=== PATIENT | male | born 1970 | race Caucasian/White ===

== ENCOUNTER 2017-06-07 13:52 | Emergency (ER) | payer MEDICARE, OTHER ==
[~2017-06-07] VITALS: Ht 188 cm; Wt 84.0 kg
[2017-06-07 15:01] VITALS: BP 151/127
[2017-06-07] MEDS ORDERED: traMADol 50MG tablet PO STA (16:10)
[2017-06-07] MEDS ORDERED: acetaminophen 325mg tablet PO STA (16:10)
[2017-06-07] MEDS ORDERED: TRAM50TA2 PO (16:58)
== END 2017-06-07 17:12 | disposition home or self-care (01) ==
LOC: ER 13:52
DX: S39.012A Strain of muscle, fascia and tendon of lower back, initial encounter (principal); G89.29 Other chronic pain; Z98.890 Other specified postprocedural states; Z88.5 Allergy status to narcotic agent; Z79.899 Other long term (current) drug therapy; X50.9XXA Other and unspecified overexertion or strenuous movements or postures, initial encounter; Y93.89 Activity, other specified; Y92.89 Other specified places as the place of occurrence of the external cause; Y99.8 Other external cause status
CPT/HCPCS: 72070; 72100; 99284

== ENCOUNTER 2018-05-17 11:37 | Emergency (ER) | payer MEDICARE ==
[~2018-05-17] VITALS: Ht 188 cm; Wt 85.0 kg
[2018-05-17] MEDS ORDERED: acetaminophen 325mg tablet PO ONE (12:05)
[2018-05-17 13:01] LABS: BASOPHILS % (AUTO) 0.5 % (0-1); EOSINOPHILS % (AUTO) 0.1 % (0-6); HEMATOCRIT 49.9 % (42.0-52.0); HEMOGLOBIN 17.2 g/dl (14.0-17.9); LYMPHOCYTES # (AUTO) 0.7 X10'3 (1.1-4.8); LYMPHOCYTES % (AUTO) 9.7 % (21-51); MEAN CORPUSCULAR HEMOGLOBIN 30.2 PG (27.0-31.0); MEAN CORPUSCULAR HGB CONC 34.3 g/dL (33.0-36.5); MEAN CORPUSCULAR VOLUME 87.9 FL (78-98); MEAN PLATELET VOLUME 7.1 FL (7.4-10.4); MONOCYTES # (AUTO) 0.5 X10'3 (0-0.9); MONOCYTES % (AUTO) 6.6 % (2-12); NEUTROPHILS # (AUTO) 6.2 X10'3 (1.8-7.7); NEUTROPHILS % (AUTO) 83.1 % (42-75); PLATELET COUNT 249 X10'3 (140-440); RED BLOOD COUNT 5.68 X10'6 (4.70-6.10); RED CELL DISTRIBUTION WIDTH 13.7 % (11.5-14.5); WHITE BLOOD COUNT 7.5 X10'3 (4.5-11.0)
[2018-05-17 13:14] LABS: INR 1.1 INR; PARTIAL THROMBOPLASTIN TIME 32 SECONDS (22-32); PROTHROMBIN TIME 10.8 SECONDS (9.0-12.0)
[2018-05-17 13:16] LABS: ALANINE AMINOTRANSFERASE 65 U/L (12-78); ALBUMIN 3.9 G/DL (3.4-5.0); ALBUMIN/GLOBULIN RATIO 0.9 (1.1-1.5); ALKALINE PHOSPHATASE 223 IU/L (46-116); ANION GAP 12 (8-16); ASPARTATE AMINO TRANSFERASE 47 U/L (10-37); BILIRUBIN,TOTAL 0.9 MG/DL (0.1-1.0); BLOOD UREA NITROGEN 16 MG/DL (7-18); CALCIUM 9.1 MG/DL (8.5-10.1); CHLORIDE 99 MMOL/L (99-107); CREATININE 1.33 MG/DL (0.60-1.10); GLUCOSE 109 MG/DL (70-104); SODIUM 135 MMOL/L (135-145); TOTAL CARBON DIOXIDE 24.2 MMOL/L (24-32); TOTAL PROTEIN 8.3 G/DL (6.4-8.2); eGFR 58 ML/MIN
[2018-05-17] MEDS ORDERED: DOXY50TA2 PO (13:34)
[2018-05-17] MEDS ORDERED: DOXY100C43 PO (13:34)
[2018-05-17] MEDS ORDERED: ketorolac trometh. 30mg/ml inj. IV ONE (13:35)
[2018-05-17] MEDS ORDERED: normal saline 1000ML IV soln IVB ONE (13:35)
[2018-05-17] MEDS ORDERED: benzonatate 100mg capsule PO ONE (13:35)
[2018-05-17] MEDS ORDERED: TAM75C PO (14:10)
[2018-05-17] MEDS ORDERED: BENZ-16 PO (14:10)
--- NOTE | 2018-05-17 14:17 | NUR ---
PT HAD LACTIC 2.2, ELEVATED HEART RATE, INCREASED TEMP. DR. ORELLANA DID NOT WANT TO TREAT FOR SEPSIS. PT HOME WITH FLU.
[2018-05-17 14:20] VITALS: BP 105/72
== END 2018-05-17 14:21 | disposition home or self-care (01) ==
LOC: ER 11:38
DX: J20.9 Acute bronchitis, unspecified (principal); R42 Dizziness and giddiness; G89.29 Other chronic pain; Z98.890 Other specified postprocedural states; Z88.5 Allergy status to narcotic agent; Z79.899 Other long term (current) drug therapy
CPT/HCPCS: 36415; 71046; 80053; 83605; 84145; 85025; 85610; 85730; 87040; 93005; 96361; 96374; 99284; J1885; J7030

== ENCOUNTER 2023-12-09 15:12 | Emergency (ER) | payer MEDICARE, MEDICAID, OTHER ==
[~2023-12-09] VITALS: Ht 188 cm; Wt 74.0 kg
[~2023-12-09 15:12] MED LIST: DUPI300P IJ; OMEP20CA16 PO
[2023-12-09 15:17] VITALS: BP 139/108; PULSE 104; O2SAT 98
[2023-12-09 16:44] VITALS: RESP 18
[2023-12-09] MEDS: ketorolac trometh 30MG/ML vial 30 MG/ML VIAL IM ONE (16:44)
[2023-12-09 17:28] VITALS: TEMP 98.5
== END 2023-12-09 17:33 | disposition home or self-care (01) ==
LOC: ER 15:13
DX: S50.02XA Contusion of left elbow, initial encounter (principal); R51.9 Headache, unspecified; G89.29 Other chronic pain; M54.9 Dorsalgia, unspecified; Z88.5 Allergy status to narcotic agent; Z88.8 Allergy status to other drugs, medicaments and biological substances; Z79.899 Other long term (current) drug therapy; Z98.890 Other specified postprocedural states; V89.2XXA Person injured in unspecified motor-vehicle accident, traffic, initial encounter; Y93.89 Activity, other specified; Y92.89 Other specified places as the place of occurrence of the external cause; Y99.8 Other external cause status
CPT/HCPCS: 73080; 96372; 99283; J1885

== ENCOUNTER 2023-12-31 18:57 | Emergency (ER) | payer MEDICARE, MEDICAID, OTHER ==
[~2023-12-31] VITALS: Ht 188 cm; Wt 88.8 kg
[2023-12-31] MEDS ORDERED: ketorolac trometh 15mg/ml vial 15 MG/ML ML IM ONE (19:10)
[2023-12-31] MEDS ORDERED: morphine 4 MG/ML inj SYRINge IV ONE (19:10)
[2023-12-31] MEDS: morphine 4 MG/ML inj SYRINge IM ONE (19:27)
[2023-12-31] MEDS: ketorolac trometh 30MG/ML vial 30 MG/ML VIAL IM ONE (19:29)
[2023-12-31] MEDS ORDERED: CYCL-394 PO (19:44)
[2023-12-31 20:01] VITALS: BP 146/88; PULSE 70; RESP 15; TEMP 98.6; O2SAT 99
== END 2023-12-31 20:02 | disposition home or self-care (01) ==
LOC: ER 18:58
DX: R07.81 Pleurodynia (principal); G89.29 Other chronic pain; M54.9 Dorsalgia, unspecified; Z98.890 Other specified postprocedural states; Z88.5 Allergy status to narcotic agent; Z88.8 Allergy status to other drugs, medicaments and biological substances
CPT/HCPCS: 71045; 96372; 99284; J1885; J2270

== ENCOUNTER 2024-07-05 12:26 | Emergency (ER) | payer MEDICARE, MEDICAID ==
[~2024-07-05] VITALS: Ht 188 cm; Wt 90.8 kg
[2024-07-05 12:29] VITALS: BP 124/87; PULSE 71; TEMP 98.2; O2SAT 100
--- NOTE | 2024-07-05 15:48 | Physician Documentation ---
History of Present Illness ~ Chief Complaint: Back Pain Stated Complaint: BACK PAIN Time Seen by MD: 14:28 Primary Medical Doctor: Joe neff [facility] Patient is seen today with complaints of acute on chronic low back pain. Patient states he has had eight spine surgeries most recently two months ago. Patient states he got a flat tire in the way to work couple of days ago and had to change it out and felt fine the rest of that day but then yesterday and today he has been having increased low back pain and states he would like a Toradol shot. Patient denies any saddle anesthesia or changes in bowel or bladder habits. Patient has no other concern or complaint at this time. Medication Reconciliation Allergies: Coded Allergies: hydrocodone bit (Verified Allergy, Intermediate, ITCHY FACE, CAN'T URINATE, 12/09/23) acetaminophen (Verified Allergy, Unknown, 12/09/23) hydrocodone (Verified Allergy, Unknown, 12/09/23) Scheduled Dupilumab (Dupixent Pen), 300 MG IJ Q2W, (Reported) Scheduled PRN Omeprazole (Omeprazole), 1 CAP PO BID PRN for stomach upset, (Reported) Past Medical History Past Medical History: Chronic Back Pain Past Surgical History: orthopedic surgeries, other Alcohol Use: None Drug Use: none Lives with: Family Lives In: Home Occupation: disabled Review of Systems Constitutional: Denies: chills, fever, weakness Eyes: Denies: pain, blurred vision ENT: Denies: ear pain, nose pain, throat pain, mouth pain Respiratory: Denies: cough, shortness of breath Cardiovascular: Denies: chest pain, palpitations Gastrointestinal: Denies: abdominal pain, nausea, vomiting Genitourinary: Denies: burning, dysuria Male Genitalia: Denies: penile discharge, testicular pain Neurological: Denies: headache, dizziness Musculoskeletal: Denies: pain, swelling Integumentary: Denies: rash, lesions Allergic/Immunologic: Denies: hives, itching Hematologic/Lymphatic: Denies: no symptoms reported Psychiatric: Denies: depression, anxiety Physical Exam Physical Exam Vital Signs: Temperature: 98.2, Source: Oral, Heart Rate: 71, Respiratory Rate: 16, BP: 124/87, Pulse Oximetry: 100, Weight: 90.800 Oxygen Flow Rate: 0 Physical Exam General: Awake and Alert, no acute distress. HEENT: Conjunctiva pink, Sclera clear, Mucus Membranes moist. Neck: Supple without masses and tenderness. Resp: Unlabored. Lungs clear to auscultation bilaterally. Musculoskeletal: Patient on exam has decreased range of motion of the lumbar spine in all planes of motion. Patient is neurovascularly intact distally. Motor function is intact distally. Strength is diminished but at baseline per patient recall. Extremities: No cyanosis,clubbing or edema. Skin: Warm and Dry. Progress Results/Orders Results/Orders Vital Signs 07/05/24 12:29 Temp 98.2 Pulse 71 Resp 16 B/P (MAP) 124/87 Pulse Ox 100 O2 Flow Rate 0 Medical Decision Making Findings Patient is seen today with complaints of acute on chronic low back pain. Patient states he has had eight spine surgeries most recently two months ago. Patient states he got a flat tire in the way to work couple of days ago and had to change it out and felt fine the rest of that day but then yesterday and today he has been having increased low back pain and states he would like a Toradol shot. Patient denies any saddle anesthesia or changes in bowel or bladder habits. Patient has no other concern or complaint at this time. Patient was given Toradol 30 mg IM in the ED tonight. Shared decision-making utilized with the patient today. Patient tolerated injection well. Patient will continue new methocarbamol muscle relaxers at home as prescribed by his primary care provider. Patient will return to ED with any worsening, concerning or changing symptoms. Departure Disposition: HOME / SELF CARE / HOMELESS Impression: Primary Impression: Strain of lumbar region Qualified Codes: S39.012A - Strain of muscle, fascia and tendon of lower back, initial encounter Additional Impression: Low back pain Qualified Codes: M54.41 - Lumbago with sciatica, right side Discharge Instructions: Chronic Back Pain, Sciatica Additional Instructions: Patient was given Toradol 30 mg IM in the ED tonight. Shared decision-making utilized with the patient today. Patient tolerated injection well. Patient will continue new methocarbamol muscle relaxers at home as prescribed by his primary care provider. Patient will return to ED with any worsening, concerning or changing symptoms. Referrals: NO PRIMARY CARE PROVIDER (PCP) Signature Scribe Signature: No scribe Attestation: No scribe TANVI BOLAND PAC July 05, 2024 15:48
[2024-07-05 15:57] VITALS: RESP 16
[2024-07-05] MEDS: ketorolac trometh 30MG/ML vial 30 MG/ML VIAL IM STA (15:57)
== END 2024-07-05 16:01 | disposition home or self-care (01) ==
LOC: ER 12:26
DX: S39.012A Strain of muscle, fascia and tendon of lower back, initial encounter (principal); Z88.5 Allergy status to narcotic agent; W19.XXXA Unspecified fall, initial encounter; Y93.89 Activity, other specified; Y92.89 Other specified places as the place of occurrence of the external cause; Y99.8 Other external cause status
CPT/HCPCS: 96372; 99283; J1885

== ENCOUNTER 2024-12-08 17:29 | Emergency (ER) | payer MEDICARE, MEDICAID ==
[~2024-12-08] VITALS: Ht 188 cm; Wt 92.2 kg
[2024-12-08 17:32] VITALS: BP 162/98; PULSE 102; TEMP 98.7; O2SAT 98
--- NOTE | 2024-12-08 18:20 | Physician Documentation ---
History of Present Illness ~ Chief Complaint: Back Pain Stated Complaint: BACK PAIN Time Seen by MD: 18:12 OK to notify your PCP?: Yes Primary Medical Doctor: Joe neff Source: patient Mode of Arrival: POV Exam Limitations: no limitations HPI 54-year-old male presents with right-sided posterior thorax muscle strain. He was trying on new shoes and when he bent down he felt the muscle pull in his now feels very tight. This occurred yesterday. He has chronic back pain and with multiple surgeries and already takes methocarbamol and gabapentin at home for pain. He did try using a heating pad last night with no relief. He is requesting a Toradol injection. Medication Reconciliation Allergies: Coded Allergies: hydrocodone bit (Verified Allergy, Intermediate, ITCHY FACE, CAN'T URINATE, 12/08/24) acetaminophen (Verified Allergy, Unknown, 12/08/24) hydrocodone (Verified Allergy, Unknown, 12/08/24) Scheduled Dupilumab (Dupixent Pen), 300 MG IJ Q2W, (Reported) Scheduled PRN Omeprazole (Omeprazole), 1 CAP PO BID PRN for stomach upset, (Reported) Past Medical History Past Medical History: Chronic Back Pain Past Surgical History: orthopedic surgeries, other Alcohol Use: None Drug Use: none Lives with: Family Lives In: Home Occupation: disabled Physical Exam Physical Exam Vital Signs: RN Vital Signs have been reviewed: Yes, Temperature: 98.7, Source: Oral, Heart Rate: 102, Respiratory Rate: 18, BP: 162/98, Pulse Oximetry: 98, Weight: 92.200 Oxygen Flow Rate: 0 Pulse Oximetry Reflects: adequate oxygenation Physical Exam General: Alert, no distress. HEENT: No injection, moist mucous membranes. Neck: Full range of motion. Respiratory: No respiratory distress, equal chest rise and fall. Chest: No accessory muscle use. Cardiovascular: Regular rate and rhythm. Gastrointestinal: Nondistended. Extremities: Normal range of motion, no deformity. Back: No CVA tenderness, no midline tenderness. Tenderness to palpation of right latissimus dorsi muscle. Neurologic: Oriented x4. Psychiatric: Normal mood and affect. Skin: Normal color, warm and dry. Progress Results/Orders Results/Orders Completed Orders - MAGDALENA RASHID CHART WRITER Ketorolac Trometh 15mg/Ml Vial (Toradol (12/08/24 18:20) Vital Signs 12/08/24 17:32 Temp 98.7 Pulse 102 Resp 18 B/P (MAP) 162/98 Pulse Ox 98 O2 Flow Rate 0 Medical Decision Making Findings He presents with right upper back pain. His physical exam shows tenderness to palpation of right latissimus dorsi muscle. He is requesting a Toradol injection, I gave a Toradol injection while here in the department. He already takes methocarbamol and gabapentin and does have a nerve stimulator for chronic back pain. He reports not needing any stronger medications. We discussed follow up instructions as well as discharge instructions. Differential Dx:Considerations: Include: AAA, Aortic dissection, Appendicitis, Bowel obstruction, Fracture, Pancreatitis, Pyelonephritis, Renal infarction, Urinary obstruction, Urolithiasis, Urinary tract infection Departure Disposition: HOME / SELF CARE / HOMELESS Impression: Primary Impression: Strain of thoracic region Condition: Stable Discharge Instructions: Acute Back Pain, Adult Additional Instructions: Follow up with her primary care provider within the next week and return back here for any new or worsening symptoms. Referrals: NO PRIMARY CARE PROVIDER (PCP) Education Educated: Patient Educated regarding: diagnosis, treatment, prognosis, need for follow up Additional Comment Medical Screen Exam This patient recieved a medical screening examination. After reviewing the individual's medical complaints with presenting symptoms and performing an appropriate physical examination, it was determined that no immediate life- threatening emergency medical condition is present. This individual is also not a women having contractions. Signature Scribe Signature: . Attestation: Scribed for Magdalena Rashidp by Magdalena Telles NP . 12/08/24 18:29 Parts of this note were created using [employer] voice recognition software program. While efforts were made to correct any mistakes made by this voice recognition software program, nonsensical phrases may remain in this note. In addition, there may be errors and syntax, grammar, content and spelling. MAGDALENA RASHIDP Dec 08, 2024 18:20
[2024-12-08 18:44] VITALS: RESP 18
[2024-12-08] MEDS: ketorolac trometh 15mg/ml vial 15 MG/ML ML IM ONE (18:44)
== END 2024-12-08 18:46 | disposition home or self-care (01) ==
LOC: ER 17:29
DX: S29.012A Strain of muscle and tendon of back wall of thorax, initial encounter (principal); G89.29 Other chronic pain; Z88.5 Allergy status to narcotic agent; Z79.899 Other long term (current) drug therapy; Z98.890 Other specified postprocedural states; X58.XXXA Exposure to other specified factors, initial encounter; Y93.89 Activity, other specified; Y92.89 Other specified places as the place of occurrence of the external cause; Y99.8 Other external cause status
CPT/HCPCS: 96372; 99283; J1885